=== PATIENT | female | born 1940 | race Caucasian/White ===

== ENCOUNTER → 2016-11-13 | Outpatient (CLI) | payer MEDICARE, OTHER | LOC: MAMO 13:18 | DX: Z12.31 Encounter for screening mammogram for malignant neoplasm of breast (principal) | CPT/HCPCS: G0202 ==

== ENCOUNTER → 2020-07-19 | Outpatient (CLI) | payer MEDICARE, OTHER ==
[~2020-07-19] MED LIST: ACETAMINOPHEN-1 EAC1 PO; ALDACTONE 25MG25 MG PO; CARTIA XT240 MG PO; COREG 25MG TAB25 MG PO; DIGOX125 MCG PO; EUTHYROX125 MCG PO; IRBESARTAN150 MG PO; LEVOFLOXACIN250 MG PO; LO-DOSE ASPIRIN81 MG PO; PRAVASTATIN SOD10 MG PO; WARFARIN SODIUM3 MG PO
[2020-07-19 12:08] LABS: HEMOGLOBIN 12.9 gm/dl (12.3-15.3); RED BLOOD COUNT 4.39 M/UL (4.00-5.10)
== END ==
LOC: LAB 11:39
PROVIDERS: Emergency Medicine
DX: D44.0 Neoplasm of uncertain behavior of thyroid gland (principal); E78.2 Mixed hyperlipidemia; E79.0 Hyperuricemia without signs of inflammatory arthritis and tophaceous disease; G44.89 Other headache syndrome; G56.01 Carpal tunnel syndrome, right upper limb; I10 Essential (primary) hypertension; I42.9 Cardiomyopathy, unspecified; I48.20 Chronic atrial fibrillation, unspecified
CPT/HCPCS: 36415; 80053; 84550; 85025

== ENCOUNTER → 2021-01-09 | Outpatient (CLI) | payer MEDICARE, OTHER ==
[2021-01-09 13:17] LABS: HEMOGLOBIN 13.8 gm/dl (12.3-15.3); RED BLOOD COUNT 4.6 M/UL (4.00-5.10); WHITE BLOOD COUNT 8.4 K/UL (4.5-11.0)
[2021-01-11 14:12] LABS: CHOLESTEROL, TOTAL 183 mg/dL (100-199); HDL SIZE 9.1 nm (>=9.2); HDL-C 53 mg/dL (>39); HDL-P (TOTAL) 32.5 umol/L (>=30.5); LARGE HDL-P 4.7 umol/L (>=4.8); LARGE VLDL-P 6.2 nmol/L (<=2.7); LDL SIZE 21.1 nm (>20.5); LDL SIZE 21.1 nm (>=20.8); LDL-C 107 mg/dL (0-99); LDL-P 1052 nmol/L (<1000); LP-IR SCORE 55 (<=45); SMALL LDL-P 285 nmol/L (<=527); TRIGLYCERIDES 127 mg/dL (0-149); VLDL SIZE 51.7 nm (<=46.6)
== END ==
LOC: LAB 10:36
PROVIDERS: Emergency Medicine
DX: E78.2 Mixed hyperlipidemia (principal); I11.0 Hypertensive heart disease with heart failure; I50.22 Chronic systolic (congestive) heart failure; R53.83 Other fatigue
CPT/HCPCS: 36415; 80053; 80061; 83704; 84550; 85025

== ENCOUNTER → 2021-05-11 | Outpatient (CLI) | payer MEDICARE, OTHER | LOC: LAB 10:49 | PROVIDERS: Emergency Medicine | DX: E78.2 Mixed hyperlipidemia (principal); I10 Essential (primary) hypertension; R53.83 Other fatigue; Z91.041 Radiographic dye allergy status | CPT/HCPCS: 36415; 80048 ==

== ENCOUNTER → 2021-09-24 | Outpatient (CLI) | payer MEDICARE, OTHER | LOC: LAB 10:34 | PROVIDERS: Internal Medicine Cardiovascular Disease | DX: E78.5 Hyperlipidemia, unspecified (principal); I11.0 Hypertensive heart disease with heart failure; I50.22 Chronic systolic (congestive) heart failure; I25.10 Atherosclerotic heart disease of native coronary artery without angina pectoris; I48.91 Unspecified atrial fibrillation; I42.0 Dilated cardiomyopathy; R55 Syncope and collapse; R06.02 Shortness of breath | CPT/HCPCS: 36415; 80053; 80061; 80162; 84439; 84443; 84481 ==

== ENCOUNTER 2021-10-14 01:14 | Observation (INO) | payer MEDICARE, OTHER ==
[~2021-10-14] VITALS: Ht 160 cm; Wt 77.1 kg
[2021-10-14 02:09] LABS: HEMOGLOBIN 13.7 gm/dl (12.3-15.3); RED BLOOD COUNT 4.69 M/UL (4.00-5.10); WHITE BLOOD COUNT 9.4 K/UL (4.5-11.0)
[2021-10-14] MEDS ORDERED: ELIQUIS 5 MG TAB5 MG PO ×2 (07:43→14:32)
== END 2021-10-14 15:40 | disposition home or self-care (01) ==
LOC: ER1 01:14 → CDU 04:32 → M/S 04:32
PROVIDERS: Student in an Organized Health Care Education/Training Program; ADMIT Internal Medicine
DX: R07.9 Chest pain, unspecified (principal); I25.10 Atherosclerotic heart disease of native coronary artery without angina pectoris; I48.91 Unspecified atrial fibrillation; I11.0 Hypertensive heart disease with heart failure; I50.22 Chronic systolic (congestive) heart failure; E03.9 Hypothyroidism, unspecified; K21.9 Gastro-esophageal reflux disease without esophagitis; Z79.01 Long term (current) use of anticoagulants; Z79.899 Other long term (current) drug therapy
CPT/HCPCS: ECHO; 36415; 71045; 78452; 80053; 81001; 82140; 82550; 82553; 82607; 82652; 82746; 83735; 83880; 84100; 84439; 84443; 84484; 84550; 85025; 85652; 86140; 93005; 93306; 93350; 99285; A9502; G0378; J2785

== ENCOUNTER → 2022-01-17 | Outpatient (CLI) | payer MEDICARE, OTHER ==
[~2022-01-17] MED LIST changes: +ELIQUIS 5 MG TAB5 MG PO
== END ==
LOC: KOH-I 01-02 16:30
DX: G44.89 Other headache syndrome (principal)
CPT/HCPCS: 70450